=== PATIENT | male | born 1990 | race African-American/Black ===

== ENCOUNTER 2017-06-06 17:30 | Emergency (ER) | payer MEDICAID, OTHER ==
[~2017-06-06] VITALS: Ht 188 cm; Wt 110.0 kg
[2017-06-06] MEDS ORDERED: SODIUM CHLORIDE 0.9% 1,000 ML IV ONE (18:04)
[2017-06-06] MEDS ORDERED: MECLIZINE 25MG TABLET PO ONE (18:15)
[2017-06-06 18:37] LABS: *AMPHETAMINES SCREEN URINE NEGATIVE (NEGATIVE); *BARBITURATES SCREEN URINE NEGATIVE (NEGATIVE); *BENZODIAZEPINES SCREEN URINE NEGATIVE (NEGATIVE); *COCAINE SCREEN URINE NEGATIVE (NEGATIVE); CANNABINOID URINE SCREEN PRESUMTIVE POSITIVE (NEGATIVE); METHADONE URINE SCREEN NEGATIVE (NEGATIVE); OPIATES URINE SCREEN NEGATIVE (NEGATIVE); PHENCYCLIDINE URINE SCREEN NEGATIVE (NEGATIVE)
[2017-06-06 18:40] LABS: HEMATOCRIT. 43.6 % (42.0-52.0); HEMOGLOBIN. 14.5 g/dL (14.0-18.0); MEAN CORPUSCULAR HEMOGLOBIN 27.6 pg (28.0-32.0); PLATELET 173 x1000/uL (130-400); RED BLOOD CELL COUNT 5.25 mill/uL (4.7-6.1); RED CELL DISTRIBUTION WIDTH 14.5 % (11.6-14.6)
[2017-06-06 18:45] LABS: INR 1.2; PROTHROMBIN TIME 12.3 sec (9.4-11.6)
[2017-06-06 18:48] LABS: CHLORIDE 105 mEq/L (98-107)
[2017-06-06 18:49] LABS: ETHANOL BLOOD < 10 mg/dL
[2017-06-06 19:49] LABS: PLATELET ESTIMATE NORMAL
[2017-06-06 20:44] VITALS: BP 130/80
== END 2017-06-06 20:47 | disposition home or self-care (01) ==
LOC: ER 17:42
DX: R55 Syncope and collapse (principal); R20.2 Paresthesia of skin; F12.10 Cannabis abuse, uncomplicated; Z91.018 Allergy to other foods
CPT/HCPCS: 36415; 70450; 71045; 80053; 80305; 83880; 84484; 85025; 85610; 93005; 99285; G0482; J7030; J8597